=== PATIENT | female | born 2000 | race Caucasian/White ===

== ENCOUNTER → 2020-08-08 11:14 | Outpatient (CLI) | payer OTHER, MEDICAID, SELFPAY ==
[2020-08-08 13:18] LABS: HIV 1 & 2 Ab/Ag 4th Gen Combo NEGATIVE (NEGATIVE); Hep C Virus Ab w/Reflex Quant NEGATIVE s/c (NEGATIVE)
[2020-08-08 13:38] LABS: Urine N gonorrhoeae NOT DETECTED
[2020-08-08 13:39] LABS: Urine Chlamydia NOT DETECTED
[2020-08-09 08:09] LABS: HSV 2 IGG AB < 0.91 index (0.00-0.90); HSV1IGG < 0.91 index (0.00-0.90)
[2020-08-09 08:44] LABS: Varicella IgG Antibody 780 index (Immune >165)
[2020-08-11 13:15] LABS: Calc Gestational Age As provided (.); Estriol, Free 0.87 ng/mL (.); Inhibin A, Dimeric 234.67 pg/mL (.); Inhibin A, MoM 1.66 (.); Maternal Ethnicity Caucasian (.); Maternal Weight 229 lbs (.); Number of Fetuses No (.); OSBR Risk 1 IN 10000 (.); Results Report (.); Test Results *Screen Negative* (.); hCG, MoM 1.53 (.); hCG, Serum 66560 mIU/mL (.)
== END ==
PROVIDERS: PCP Family Medicine; Referring Provider Family Medicine; Visit Provider Family Medicine
DX: Z34.82 Encounter for supervision of other normal pregnancy, second trimester (principal); Z11.3 Encounter for screening for infections with a predominantly sexual mode of transmission; Z11.8 Encounter for screening for other infectious and parasitic diseases; Z3A.14 14 weeks gestation of pregnancy
CPT/HCPCS: 36415; 82105; 82677; 84702; 86336; 86695; 86696; 86787; 86803; 87086; 87389; 87491; 87591

== ENCOUNTER 2020-08-28 11:47 | Emergency (ER) | payer OTHER, MEDICAID, SELFPAY ==
[2020-08-28 11:50] VITALS: BP 139/65; PULSE 117; RESP 24; O2SAT 99; BMI 38.2
--- NOTE | 2020-08-28 12:21 | DI.US.S_ITS ---
PROCEDURE: US OB LIMITED INDICATIONS: RIGHT LOWER QUADRANT PAIN - 19 WEEKS GESTATIONAL AGE OUTSIDE/PRIOR DATING DATA: Last menstrual period (LMP): 04/17/2020. LMP-based estimated date of delivery (DINAH): 01/22/2021. TECHNIQUE: Real-time scanning was performed of the fetus, with image documentation. Endovaginal scanning: Not performed. COMPARISON: None. FINDINGS: A single living intrauterine gestation is present. Presentation: Vertex. Placenta: Placental position is anterior, without previa. Amniotic fluid index: 20.1 cm, normal range is 5-24 cm. heart rate: 136 beats per minute. Maternal cervical canal: 3.3 cm long. Normal lower limit is 2.5 cm. IMPRESSION: Ramos living intrauterine . heart rate 136 BPM. Recommend follow-up OB ultrasound at 20 weeks for anatomic survey. Dictated by: Simone Kaiser M.D. on 08/28/2020 at 14:09 Approved by: Simone Kaiser M.D. on 08/28/2020 at 14:12
--- NOTE | 2020-08-28 12:23 | ED_ITS ---
HPI - Abdominal Pain <Carl Kimshikha [facility] - Last Filed: 08/28/20 14:47> General Chief Complaint: Abdominal Pain Stated Complaint: PAIN IN RIGHT LOWER ABDOMEN, Time Seen by Provider: 08/28/20 11:49 Source: patient Mode of arrival: Ambulatory Limitations: no limitations History of Present Illness HPI narrative: This is a 20-year-old female, nonsmoker, who is 19 week EGA presents to ED with chief complain of right lower quadrant pain for last 3-4 days. Patient reports last night she had worst pain which worsened when rolled over, with movements, by palpation. She describes pain as cramping as baseline and sharp with movements and palpations. Patient also reports increased urinary urgency and frequency this past week. She also reports low midback worse on right-sided pain. Patient states pain is last persistent/consistent today as compared to last night. She denies vaginal bleeding or spotting. Patient denies history of any abdominal surgeries. She denies fever, chills, nausea, vomiting. She reports mild constipation and reports pressure like discomfort. Denies rectal bleeding. Patient reports history of ovarian cysts and PCOS. Patient had not tried Tylenol or other home treatment for pain. She had a bottle of water at 8:30 a.m. and small snack at 10:38 a.m. this morning. Related Data Home Medications Medication Instructions Recorded Confirmed prenat.vits,audra,kcw-[id number] 1 tab PO BEDTIME 07/10/20 08/28/20 Allergies Allergy/AdvReac Type Severity Reaction Status Date / Time Estrogens Allergy Severe Severe Verified 08/28/20 11:53 hives with synthetic forms of estrogen in Penicillins Allergy Severe Swelling Verified 08/28/20 11:53 and Hives Review of Systems <Carl Levine [facility] - Last Filed: 08/28/20 14:47> Review of Systems Narrative: General: Denies fever, chills, fatigue, malaise, sweats. HEENT: Denies sinus pain, ear pain, sore throat, difficulty swallowing, dizziness. Respiratory: Denies dyspnea, cough, wheezing, hemoptysis, sputum. Cardiovascular: Denies chest pain, palpitations, orthopnea, edema. Gastrointestinal: See HPI : See HPI Musculoskeletal: See HPI Skin: Denies rash, skin lesions, or other. Neurologic: Denies weakness, headache, numbness, change in speech, confusion, seizures, incoordination. Psychiatric: No concerning psychosocial issues. 12-point review of systems is negative except for those stated above. Patient History <AGUEDA Hall - Last Filed: 08/28/20 14:47> Medical History Migraine PCOS (polycystic ovarian syndrome) UTI (urinary tract infection) Surgical History H/O wisdom tooth extraction (~07/2019) Family History Mother Alcoholic Father Diverticulitis Grandmother Cancer Breast cancer Grandfather CVA (cerebral vascular accident) Grandmother Hyperthyroidism Thyroid disease Grandfather Cancer Prostate CA Diabetes mellitus Thyroid disease Hyperthyroidism Family/Other PCOS (polycystic ovarian syndrome) Social History household members: significant other lives independently: Yes pets and animals: Yes (X 1 dog) education level: high school occupational status: employed current occupational exposures/hazards: Yes 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 Head: Normal cephalic, atraumatic. No scalp or temporal tenderness, palpable mass or rash. EYES: Pupils are equal, round, and reactive to light and accommodation. Extraocular muscles are intact bilaterally. There is no subconjunctival hemorrhage, exudate and sclera non-icteric. ENT: Bilateral auditory canals and tympanic membranes clear. Hearing grossly intact. Nose without bleeding, purulent discharge or deviation. Facial sinuses nontender to palpate. Mucous membrane moist, no mucosal lesion. Throat without erythema, tonsillar hypertrophy or exudate. Uvula in midline, airway patent. Neck: Trachea in midline. No JVD, non-tender without lymphadenopathy. No ma sses or thyroid megaly. Supple, non-tender and no meningeal signs. CARDIAC: Normal regular rate and rhythm without murmurs, gallops, or rubs. No chest wall tenderness. No peripheral edema, cyanosis or pallor. Capillary refill is less than 2 seconds. RESPIRATORY: Lungs are clear to auscultate bilaterally. No cough, wheezes, rales, or rhonchi. No stridor, respiratory distress, increase work of breathing, or accessary muscle used. ABD: Abdomen soft and non-distended. Right lower quadrant pain with palpation. Positive obturators sign. No guarding to palpate. Bowel sounds are normal in all 4 quadrants. There is no palpable masses or organomegaly. EXT: Full painless ROM of all extremities with no loss of sensation, strength, effusion or edema. SKIN: Warm, dry, normal color for patient. No erythema, lesions or rash over visible areas. BACK: Nontender without deformity or crepitance. No flank tenderness. NEUROLOGICAL: Alert and oriented to place, time and person. Sensation and motor function intact bilaterally. No facial droops, dysphasia. PSYCHIATRIC: Good judgement and reason, without hallucinations, abnormal affect or abnormal behaviors during the examination. Patient is not suicidal. Initial Vital Signs Initial Vital Signs: Vital Signs Pulse Rate 117 H 08/28/20 11:50 Respiratory Rate 24 08/28/20 11:50 Blood Pressure 139/65 08/28/20 11:50 Pulse Oximetry 99 08/28/20 11:50 <Kentrell Chao DO - Last Filed: 08/29/20 17:52> Initial Vital Signs Initial Vital Signs: Vital Signs Pulse Rate 117 H 08/28/20 11:50 Respiratory Rate 24 08/28/20 11:50 Blood Pressure 139/65 08/28/20 11:50 Pulse Oximetry 99 08/28/20 11:50 Scores <AGUEDA Hall - Last Filed: 08/28/20 14:47> GCS [place] coma scale eye opening: Spontaneous [place] coma scale verbal response: Orientated [place] coma scale motor response: Obey commands [place] coma scale total score: 15 qSOFA Altered Mental Status (GCS <15): No Respiratory rate greater than/equal to 22: No Systolic blood pressure less than or equal to 100: No qSOFA Total: 0 0-1 Not High Risk 1-3 High risk Course <AGUEDA Hall - Last Filed: 08/28/20 14:47> Orders Ordered: Discontinued Medications Acetaminophen (Acetaminophen 325 Mg Tablet) 650 mg PO NOW ONE Stop: 08/28/20 12:23 Last Admin: 08/28/20 13:33 Dose: 650 mg Documented by: BTONER Sodium Chloride (Normal Saline 0.9%) 500 mls @ 1,000 mls/hr IV BOLUS ONE Stop: 08/28/20 13:18 Last Infusion: 08/28/20 14:21 Dose: 0 mls/hr Documented by: Admin: 08/28/20 13:34 Dose: 1,000 mls/hr Documented by: BTONER Vital Signs Vital signs: Vital Signs - 8 hr 08/28/20 11:50 08/28/20 13:27 08/28/20 14:38 Pulse Rate 117 H 92 H 88 Respiratory Rate 24 18 18 Blood Pressure 139/65 118/59 L 118/74 Pulse Oximetry 99 97 98 <Kentrell Chao DO - Last Filed: 08/29/20 17:52> Orders Ordered: Discontinued Medications Acetaminophen (Acetaminophen 325 Mg Tablet) 650 mg PO NOW ONE Stop: 08/28/20 12:23 Last Admin: 08/28/20 13:33 Dose: 650 mg Documented by: BTONER Sodium Chloride (Normal Saline 0.9%) 500 mls @ 1,000 mls/hr IV BOLUS ONE Stop: 08/28/20 13:18 Last Infusion: 08/28/20 14:21 Dose: 0 mls/hr Documented by: Admin: 08/28/20 13:34 Dose: 1,000 mls/hr Documented by: BTONER Vital Signs Vital signs: Vital Signs - 8 hr 08/28/20 11:50 08/28/20 13:27 08/28/20 14:38 Pulse Rate 117 H 92 H 88 Respiratory Rate 24 18 18 Blood Pressure 139/65 118/59 L 118/74 Pulse Oximetry 99 97 98 MDM - Abdominal Pain <AGUEDA Hall - Last Filed: 08/28/20 14:47> Differential Diagnosis Differential diagnosis: Likely acute appendicitis, calculus of kidney and other (UTI, pyelonephritis, ovarian cyst, ectopic , uterine incarceration, fibroid degeneration/torsion, round ligament ) Medical Records Attestation: I reviewed the patient's medical records. Lab Data Attestation: I reviewed the patient's lab results. Result diagrams: 08/28/20 12:15 08/28/20 12:15 Labs: Lab Results 08/28/20 08/28/20 08/28/20 Range/Units 12:15 12:15 12:15 WBC 8.8 (4.5-11.0) X10^3/uL RBC 4.34 (4.0-5.2) X10^6/uL Hgb 12.6 (12.0-16.0) g/dL Hct 37.0 (36-46) % MCV 85.3 (80-100) fL MCH 28.9 (26-34) PG MCHC 33.9 (30-36) % RDW 13.9 (11.6-14.8) % Plt Count 190 (150-400) X10^3/uL Neut % (Auto) 76.1 H (50-75) % Lymph % (Auto) 18.1 L (25-40) % [place] % (Auto) 4.9 (3-14) % Eos % (Auto) 0.6 L (2-4) % Baso % (Auto) 0.3 (0-2) % Neut # (Auto) 6700 (6433-6411) /uL Lymph # (Auto) 1600 (6825-6908) /uL [place] # (Auto) 400 (0-900) /uL Eos # (Auto) 100 (0-450) /uL Baso # (Auto) 0 (0-100) /uL Sodium 134 L (137-145) mmol/L Potassium 3.8 (3.4-5.1) mmol/L Chloride 105 (98-107) mmol/L Carbon Dioxide 22 (22-32) mmol/L BUN 7 (7-17) mg/dL Creatinine 0.34 L (0.52-1.04) mg/dL Estimated GFR > 60.0 (>60) mL/min BUN/Creatinine Ratio 20.6 (6-22) Glucose 107 H (70-100) mg/dL Lactate 0.9 (0.7-2.1) mmol/L Calcium 9.3 (8.4-10.2) mg/dL Total Bilirubin 0.2 (0.2-1.3) mg/dL AST 23 (14-36) IU/L ALT 22 (<35) IU/L Alkaline Phosphatase 63 (38-126) U/L Total Protein 7.5 (6.3-8.2) g/dL Albumin 4.0 (3.5-5.0) g/dL Globulin 3.5 (1.7-4.1) g/dL Albumin/Globulin Ratio 1.1 (1.0-2.8) Lipase 30 (23-300) U/L Point of care testing: Urine Dip Bedside Urine Glucose Negative Bedside Urine Bilirubin - Negative Bedside Urine Ketone - Negative Urine Specific [place] 1.015 Bedside Urine Occult Blood - Negative Bedside Urine pH 8.0 Bedside Urine Protein - Negative Bedside Urine Urobilinogen - Negative Bedside Urine Nitrite - Negative Bedside Urine Leukocytes - Negative Esterase MDM Narrative Medical decision making narrative: This is a 20-year-old female, no history of abdominal surgery presents to ED with chief complain of right lower quadrant pain for last 3-4 days with low back pain and increased in urinary frequency and urgency for last 1 week. Patient is 19 week EGA with . Patient denies vaginal bleeding or spotting with this. She denies fever, chills, nausea or vomiting. Urine test result shows no indications for infection with negative nitrites and leuks. Physical exam appreciated mild tenderness to palpate in right lower quadrant and obturator's sign. Concerned for appendicitis, ovar sonja/urine etiology, ultrasound of abdomen ordered. CBC shows no leukocytosis. Stable H/H of 12.6/37. Normal lactate. Normal lipase. Chemistry test shows mild hyponatremia of 134 with normal kidney function test with creatinine level of 0.34 and estimated GFR greater than 60. Serum glucose 107 mg/dL. Abdomen US ordered but read as OB US with a single IUP with FHT of 136. According to tech, no secondary infectious findings appreciated and unfortunately ovary was not seen. Abdomen exam repeated, negative heel tap or obturator signs but moderate discomfort in right lower quadrant with deep palpation. At this time, appendicitis or ovarian etiology is not completely ruled out at this time but blood tests and other findings are not consistent. Since the patient is , CT abdomen/pelvis deferred and advise patient to follow-up with Dr. Hart tomorrow for abdominal series exam. Dr. Hart consulted with the lab findings and physical exam and agrees to follow-up tomorrow with patient. Strict return precautions discussed with patient and patient verbalized understanding and in agreement with treatment plan. <Kentrell Jeremie, DO - Last Filed: 08/29/20 17:52> Lab Data Labs: Lab Results 08/28/20 08/28/20 08/28/20 Range/Units 12:15 12:15 12:15 WBC 8.8 (4.5-11.0) X10^3/uL RBC 4.34 (4.0-5.2) X10^6/uL Hgb 12.6 (12.0-16.0) g/dL Hct 37.0 (36-46) % MCV 85.3 (80-100) fL MCH 28.9 (26-34) PG MCHC 33.9 (30-36) % RDW 13.9 (11.6-14.8) % Plt Count 190 (150-400) X10^3/uL Neut % (Auto) 76.1 H (50-75) % Lymph % (Auto) 18.1 L (25-40) % [place] % (Auto) 4.9 (3-14) % Eos % (Auto) 0.6 L (2-4) % Baso % (Auto) 0.3 (0-2) % Neut # (Auto) 6700 (5149-2278) /uL Lymph # (Auto) 1600 (0957-8605) /uL [place] # (Auto) 400 (0-900) /uL Eos # (Auto) 100 (0-450) /uL Baso # (Auto) 0 (0-100) /uL Sodium 134 L (137-145) mmol/L Potassium 3.8 (3.4-5.1) mmol/L Chloride 105 (98-107) mmol/L Carbon Dioxide 22 (22-32) mmol/L BUN 7 (7-17) mg/dL Creatinine 0.34 L (0.52-1.04) mg/dL Estimated GFR > 60.0 (>60) mL/min BUN/Creatinine Ratio 20.6 (6-22) Glucose 107 H (70-100) mg/dL Lactate 0.9 (0.7-2.1) mmol/L Calcium 9.3 (8.4-10.2) mg/dL Total Bilirubin 0.2 (0.2-1.3) mg/dL AST 23 (14-36) IU/L ALT 22 (<35) IU/L Alkaline Phosphatase 63 (38-126) U/L Total Protein 7.5 (6.3-8.2) g/dL Albumin 4.0 (3.5-5.0) g/dL Globulin 3.5 (1.7-4.1) g/dL Albumin/Globulin Ratio 1.1 (1.0-2.8) Lipase 30 (23-300) U/L Point of care testing: Urine Dip Bedside Urine Glucose Negative Bedside Urine Bilirubin - Negative Bedside Urine Ketone - Negative Urine Specific [place] 1.015 Bedside Urine Occult Blood - Negative Bedside Urine pH 8.0 Bedside Urine Protein - Negative Bedside Urine Urobilinogen - Negative Bedside Urine Nitrite - Negative Bedside Urine Leukocytes - Negative Esterase Discharge Plan Departure Patient Disposition: Home Clinical Impression: Abdominal pain Qualifiers: Abdominal location: right lower quadrant Qualified Code(s): R10.31 - Right lower quadrant pain Qualifiers: Weeks of gestation: 19 weeks Qualified Code(s): Z3A.19 - 19 weeks gestation of Instructions: DI for Abdominal Pain-Adult Activity Restrictions/Additional Instructions: You have been diagnosed with [right lower quadrant pain during 2nd trimester. Labs are assuring. No indications for UTI. Ultrasound test shows one IUP with withing normal FHT.]. What to do: *Take your medications as directed. Please take [id number] Tylenol 650- 1000 mg up to 3 times a day as needed for pain. *Follow up with your primary care provider, Dr. Hart tomorrow, call for an appointment. Let them know you were seen in the ED and that we asked you to be seen in follow up. *Return to ED if you have any new, worsening, or concerning symptoms, such as [worsening pain, fever, chills, nausea, vomiting, chest pain, breathing difficulty, or any acute concerns]. Prescriptions: No Action prenat.vits,audra,[id number] Tablet 1 tab PO BEDTIME RF: 0 Referrals: Ever Hart MD [Primary Care Provider] - <Kentrell Chao DO - Last Filed: 08/29/20 17:52> Cosign ED Attending Cosignature Attestation: I was immediately available in the department for consultation. This documentation has been reviewed and I agree with assessment and plan. Supervised by Kentrell Chao DO
[2020-08-28 12:34] LABS: Add Manual Diff / Slide Review NO; Basophils Absolute Auto 0 /uL (0-100); Basophils Percent Auto 0.3 % (0-2); Eosinophils Absolute Auto 100 /uL (0-450); Eosinophils Percent Auto 0.6 % (2-4); Hemoglobin 12.6 g/dL (12.0-16.0); Lymphocytes Absolute Auto 1600 /uL (1100-4500); Lymphocytes Percent Auto 18.1 % (25-40); Mean Corpuscular HGB Conc 33.9 % (30-36); Mean Corpuscular Hemoglobin 28.9 PG (26-34); Mean Corpuscular Volume 85.3 fL (80-100); Monocytes Absolute Auto 400 /uL (0-900); Monocytes Percent Auto 4.9 % (3-14); Neutrophils Absolute Auto 6700 /uL (1500-7000); Neutrophils Percent Auto 76.1 % (50-75); Platelet Count 190 X10^3/uL (150-400); Red Blood Cell Count 4.34 X10^6/uL (4.0-5.2); Red Cell Distribution Width 13.9 % (11.6-14.8); White Blood Cell Count 8.8 X10^3/uL (4.5-11.0)
[2020-08-28 12:39] LABS: Alanine Aminotransferase 22 IU/L (<35); Albumin Globulin Ratio 1.1 (1.0-2.8); Alkaline Phosphatase 63 U/L (38-126); Aspartate Aminotransferase 23 IU/L (14-36); BUN Creatinine Ratio 20.6 (6-22); Bilirubin Total 0.2 mg/dL (0.2-1.3); Blood Urea Nitrogen 7 mg/dL (7-17); Calcium 9.3 mg/dL (8.4-10.2); Carbon Dioxide 22 mmol/L (22-32); Chloride 105 mmol/L (98-107); Estimated Glomerular Filt Rate > 60.0 mL/min (>60); Globulin 3.5 g/dL (1.7-4.1); Glucose 107 mg/dL (70-100); HEMOLYSIS < 15 (0-50); Lactate (Lactic Acid) 0.9 mmol/L (0.7-2.1); Lipase 30 U/L (23-300); Potassium 3.8 mmol/L (3.4-5.1); Sodium 134 mmol/L (137-145); Total Protein 7.5 g/dL (6.3-8.2)
[2020-08-28 13:27] VITALS: BP 118/59; PULSE 92; RESP 18; O2SAT 97
[2020-08-28] MEDS: ACETAMINOPHEN 325 MG TABLET 650 MG PO (13:33)
[2020-08-28] MEDS: SODIUM CHLORIDE 0.9% 500 ML 1000 ML IV (13:34)
[2020-08-28 14:38] VITALS: BP 118/74; PULSE 88; RESP 18; O2SAT 98
--- NOTE | 2020-08-28 14:38 | PC.NURSE ---
pt over rt lower quad of abd.
== END 2020-08-28 14:37 | disposition home or self-care (01) ==
PROVIDERS: Emergency Provider Nurse Practitioner Family; PCP Family Medicine
DX: O26.92 Pregnancy related conditions, unspecified, second trimester (principal); R10.31 Right lower quadrant pain; Z3A.19 19 weeks gestation of pregnancy
CPT/HCPCS: 36415; 76815; 80053; 81003; 83605; 83690; 85025; 96360; 99281; 99284

== ENCOUNTER → 2020-08-30 11:50 | Outpatient (CLI) | payer OTHER, MEDICAID, SELFPAY ==
[2020-08-30 12:13] LABS: RBC Urine None Seen (0-5/HPF); WBC Urine None Seen (0-5/HPF)
[2020-08-30 12:26] LABS: Appearance Urine UA SL CLOUDY; Bilirubin Urine UA NEGATIVE (NEGATIVE); Color Urine UA YELLOW; Glucose Urine UA NEGATIVE (Negative); Ketones Urine UA TRACE (NEGATIVE); Leukocyte Esterase Urine UA NEGATIVE (NEGATIVE); Nitrite Urine UA NEGATIVE (Negative); Occult Blood Urine UA NEGATIVE (Negative); Protein Urine UA TRACE (Negative); Specific Gravity Urine UA 1.025 (1.000-1.035); Urobilinogen Urine UA 0.2 E.U./dL (0.2)
[2020-08-30 12:32] LABS: Bacteria Urine Moderate (10-30); Culture Indicated Urine Cult Not Indicated; Squamous Epithelial Cell Urine 5-10 /HPF (0-5/HPF)
== END ==
PROVIDERS: PCP Family Medicine; Visit Provider Family Medicine
DX: R10.31 Right lower quadrant pain (principal)
CPT/HCPCS: 81001

== ENCOUNTER → 2020-09-05 12:08 | Outpatient (CLI) | payer OTHER, MEDICAID, SELFPAY ==
--- NOTE | 2020-09-05 12:10 | DI.US.S_ITS ---
PROCEDURE: US OB >= 14 WEEKS FETUS INDICATIONS: ANATOMIC SURVEY OUTSIDE/PRIOR DATING DATA: Last menstrual period (LMP): 04/17/2020. LMP-based estimated date of delivery (DINAH): 01/22/2021 . First dating scan (date and location): 09/05/2020 . Estimated date of delivery (DINAH) from first dating scan: 01/21/2021 . TECHNIQUE: Real-time scanning was performed of the fetus, with image documentation and biometric measurements. Endovaginal scanning: No COMPARISON: None. FINDINGS: General: A single living intrauterine gestation is present. Presentation: Breech. Placenta: Placental position is anterior , without previa. Amniotic fluid index: 20 cm, normal range is 5-24 cm. heart rate: 152 beats per minute. Maternal cervical canal: 3.6 cm long. Normal lower limit is 2.5 cm. biometrics: Biparietal diameter: 20 weeks 3 days Head circumference: 20 weeks 3 days Abdominal circumference: 20 weeks 1 day Femur length: 20 weeks Estimated gestational age from initial scan or LMP: 20 weeks 1 day Composite gestational age from present scan: 20 weeks 2 days Estimated weight and percentile: 334 g; 44th percentile Measurement variability for biometric dating: +/- 7 days from 14 weeks to 15 weeks 6 days gestation, +/- 10 days from 16 weeks to 21 weeks 6 days gestation, +/- 2 weeks from 22 weeks to 27 weeks 6 days gestation, +/- 3 weeks for 28 weeks gestation or later. weight reference: 4500 g or EFW >90/95% is considered macrosomia or large for gestational age. EFW <10% is small for gestational age. EFW 5% or less is considered intra-uterine growth restriction. Anatomic survey: Neuro: Ventricles are non-dilated at less than 10 mm. Cisterna magna is normal at 3-11 mm. Cerebellum is normal in size and morphology. Nuchal skin fold: Normal at less than 6 mm between 14-21 weeks gestational age. Face: Nose and lips, facial profile are normal. Spine: No evidence for spina bifida. Heart: 4-chambered heart is present, with normal ventricular outflow tracts. Diaphragm: Diaphragm is intact. Stomach: Left-sided stomach is present. Kidneys: No hydronephrosis. Normal is less than 5 mm in 2nd trimester, less than 7 mm in 3rd trimester. Cord: 3-vessel cord has orthotopic insertion. Bladder: Normal in size. Extremities: All 4 extremities identified. IMPRESSION: 1. Single living IUP with composite age of 20 weeks 2 days corresponding to ultrasound DINAH of 01/21/2021. 2. Normal anatomic survey. Dictated by: Anselmo Fang [facility] Interpreted: Azar Cervantes MD on 09/05/2020 at 16:46 Approved by: Azar Cervantes M.D. on 09/05/2020 at 17:06
== END ==
PROVIDERS: PCP Family Medicine; Referring Provider Family Medicine; Visit Provider Family Medicine
DX: Z34.02 Encounter for supervision of normal first pregnancy, second trimester (principal); Z3A.20 20 weeks gestation of pregnancy
CPT/HCPCS: 76811

== ENCOUNTER → 2020-10-31 11:10 | Outpatient (CLI) | payer OTHER, MEDICAID, SELFPAY ==
[2020-10-31 12:57] LABS: Hematocrit 34.1 % (36-46); Hemoglobin 11.6 g/dL (12.0-16.0)
[2020-10-31 13:39] LABS: GTT (PREG) 1 Hour PP 50gm Dose 147 mg/dL (76-139)
== END ==
PROVIDERS: PCP Family Medicine; Referring Provider Family Medicine; Visit Provider Family Medicine
DX: Z34.02 Encounter for supervision of normal first pregnancy, second trimester (principal); Z3A.24 24 weeks gestation of pregnancy; Z3A.19 19 weeks gestation of pregnancy
CPT/HCPCS: 36415; 82950; 85014; 85018; 86880; 86900; 86901

== ENCOUNTER 2020-11-14 14:10 | Outpatient (CLI) | payer OTHER, MEDICAID, SELFPAY | END 2020-11-14 14:55 | disposition home or self-care (01) | LOC: OB 11-15 14:22 | PROVIDERS: PCP Family Medicine; Referring Provider Family Medicine; Visit Provider Family Medicine | DX: Z03.71 Encounter for suspected problem with amniotic cavity and membrane ruled out (principal); O24.415 Gestational diabetes mellitus in pregnancy, controlled by oral hypoglycemic drugs; Z3A.30 30 weeks gestation of pregnancy; O99.891 Other specified diseases and conditions complicating pregnancy; R10.9 Unspecified abdominal pain | CPT/HCPCS: 59025; 81001; 84112; G0378; G0379 ==

== ENCOUNTER → 2020-11-14 17:19 | Outpatient (CLI) | payer OTHER, MEDICAID, SELFPAY ==
[2020-11-14 19:19] LABS: Appearance Urine UA CLEAR; Bilirubin Urine UA NEGATIVE (NEGATIVE); Color Urine UA YELLOW; Glucose Urine UA NEGATIVE (Negative); Ketones Urine UA TRACE (NEGATIVE); Leukocyte Esterase Urine UA TRACE (NEGATIVE); Nitrite Urine UA NEGATIVE (Negative); Occult Blood Urine UA TRACE-LYSED (Negative); Protein Urine UA TRACE (Negative); Specific Gravity Urine UA 1.025 (1.000-1.035); Urobilinogen Urine UA 0.2 E.U./dL (0.2)
[2020-11-14 19:36] LABS: Bacteria Urine Many (>30); Culture Indicated Urine Cult Not Indicated; Mucus Urine 2+ (Negative); RBC Urine 0-1/HPF (0-5/HPF); Squamous Epithelial Cell Urine >30 /HPF (0-5/HPF); Transitional Epi Cells Urine 5-10/HPF (0-5/HPF); WBC Urine 1-5/HPF (0-5/HPF)
== END ==
PROVIDERS: PCP Family Medicine; Visit Provider Family Medicine
DX: O99.891 Other specified diseases and conditions complicating pregnancy (principal); R10.9 Unspecified abdominal pain; Z3A.28 28 weeks gestation of pregnancy
CPT/HCPCS: 81001

== ENCOUNTER → 2020-11-28 08:41 | Outpatient (CLI) | payer OTHER, MEDICAID, SELFPAY ==
[2020-11-28 12:15] LABS: RBC Urine None Seen (0-5/HPF)
[2020-11-28 12:35] LABS: Appearance Urine UA CLOUDY; Bilirubin Urine UA NEGATIVE (NEGATIVE); Color Urine UA YELLOW; Glucose Urine UA NEGATIVE (Negative); Ketones Urine UA NEGATIVE (NEGATIVE); Leukocyte Esterase Urine UA 1+ (NEGATIVE); Nitrite Urine UA NEGATIVE (Negative); Occult Blood Urine UA NEGATIVE (Negative); Protein Urine UA TRACE (Negative); Specific Gravity Urine UA 1.025 (1.000-1.035); Urobilinogen Urine UA 0.2 E.U./dL (0.2)
[2020-11-28 13:37] LABS: Squamous Epithelial Cell Urine 1-5 /HPF (0-5/HPF); WBC Urine 1-5/HPF (0-5/HPF)
[2020-11-28 13:38] LABS: Amorphous Sediment Urine 4+; Bacteria Urine Few (2-10); Calcium Oxalate Crystals Urine Few; Culture Indicated Urine Specimen Cultured
== END ==
PROVIDERS: PCP Family Medicine; Visit Provider Family Medicine
DX: Z34.03 Encounter for supervision of normal first pregnancy, third trimester (principal); Z3A.30 30 weeks gestation of pregnancy
CPT/HCPCS: 81001; 87086

== ENCOUNTER 2020-12-08 14:49 | Outpatient (CLI) | payer OTHER, MEDICAID, SELFPAY | END 2020-12-08 15:38 | disposition home or self-care (01) | LOC: OB 12-11 08:04 | PROVIDERS: PCP Family Medicine; Referring Provider Family Medicine; Visit Provider Family Medicine | DX: Z03.71 Encounter for suspected problem with amniotic cavity and membrane ruled out (principal); Z3A.33 33 weeks gestation of pregnancy | CPT/HCPCS: 59025; 59050; 84112; G0378; G0379 ==

== ENCOUNTER 2020-12-31 03:41 | Inpatient (IN) | payer OTHER, MEDICAID, SELFPAY ==
[2020-12-31 06:03] LABS: Add Manual Diff / Slide Review NO; Basophils Absolute Auto 0 /uL (0-100); Basophils Percent Auto 0.3 % (0-2); Eosinophils Absolute Auto 0 /uL (0-450); Eosinophils Percent Auto 0.3 % (2-4); Hematocrit 35.1 % (36-46); Hemoglobin 11.6 g/dL (12.0-16.0); Lymphocytes Absolute Auto 1900 /uL (1100-4500); Mean Corpuscular Hemoglobin 25.9 PG (26-34); Mean Corpuscular Volume 78.5 fL (80-100); Monocytes Absolute Auto 600 /uL (0-900); Monocytes Percent Auto 6.1 % (3-14); Neutrophils Absolute Auto 7900 /uL (1500-7000); Neutrophils Percent Auto 75.3 % (50-75); Platelet Count 207 X10^3/uL (150-400); Red Blood Cell Count 4.47 X10^6/uL (4.0-5.2); Red Cell Distribution Width 14.7 % (11.6-14.8); White Blood Cell Count 10.5 X10^3/uL (4.5-11.0)
[2020-12-31 06:18] VITALS: BP 129/75
--- NOTE | 2020-12-31 06:48 | P.HPOB_ITS ---
OB HPI Date/Time Date of admission: 12/31/20 Date Patient Seen: 12/31/20 Time Patient Seen: 07:02 History of Present Condition Chief complaint: Observation : 1 Para: 0 Narrative: Laurie Leblanc is a 20 year old female G1 para 0 DINAH based on LMP of 04/19/2020 of 01/24/2021. DINAH based on 6 week ultrasound of 01/31/2021. recommended due date of 01/31/2021 puts her at 35 weeks and 4 days gestational age. Patient has a history of PCOS hemoglobin A1c on 05/31/2020 was 5.1 elevated 1 hour glucose challenge and patient was diet and metformin controlled. Blood sugars in the morning have been 90 highest post meal was 130. Patient states she began hilary about midnight last night. Contractions have been gradually increasing and presented to the center about 330 in the morning. Contractions were coming every 3-4 minutes. Moderate intensity. On arrival to the center patient was afebrile and normal blood pressure. Category 1 heart tracing. Contractions are uncomfortable. Patient has no complaints of headache right upper quadrant pain nausea blurry vision and no significant swelling. P History of Present care: good care Dating criteria: based on 1st trimester US only Ultrasounds: normal 1st trimester US and normal mid trimester US Obstetrical complications: gestational diabetes Medical complications: none Preadmission Labs Blood type: O (+) positive -: Antibody screen: negative, Cystic fibrosis screen: unknown, GBS status: positive, HIV: negative, HSV 1: negative, HSV 2: negative and RPR/VDLR: negative -: Chlamydia screen: not detected and Gonorrhea screen: not detected -: Rubella: unknown and Varicella: immune HCAB: negative Quad screen: Normal 1 hr GTT: 147 Evaluation Evaluation Baseline heart rate: 140 Variability: Average (6-10) monitor accelerations: Present Monitor Decelerations: Absent Contraction Frequency (minutes): 4 Uterine Contraction Intensity: Moderate Category of Tracing: Reactive Status: Category l Cervical dilation (cm): 5 Cervical effacement (%): 80 station: -1 Laboratory results: Laboratory Tests 12/31/20 05:55 WBC 10.5 RBC 4.47 Hgb 11.6 L Hct 35.1 L MCV 78.5 L MCH 25.9 L MCHC 33.0 RDW 14.7 Plt Count 207 Neut % (Auto) 75.3 H Lymph % (Auto) 18.0 L [place] % (Auto) 6.1 Eos % (Auto) 0.3 L Baso % (Auto) 0.3 Neut # (Auto) 7900 H Lymph # (Auto) 1900 [place] # (Auto) 600 Eos # (Auto) 0 Baso # (Auto) 0 PFSH Medical History Migraine PCOS (polycystic ovarian syndrome) UTI (urinary tract infection) Surgical History H/O wisdom tooth extraction (~07/2019) Family History Mother Alcoholic Father Diverticulitis Grandmother Cancer Breast cancer Grandfather CVA (cerebral vascular accident) Grandmother Hyperthyroidism Thyroid disease Grandfather Cancer Prostate CA Diabetes mellitus Thyroid disease Hyperthyroidism Family/Other PCOS (polycystic ovarian syndrome) Social History household members: significant other lives independently: Yes pets and animals: Yes (X 1 dog) education level: high school occupational status: employed current occupational exposures/hazards: Yes 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 Smoking Status: Never smoker second hand exposure: No alcohol intake: never substance use type: does not use Meds Home Medications and Allergies Home Medications Medication Instructions Recorded Confirmed Type prenat.vits,audra,neh-[id number] 1 tab PO BEDTIME 07/10/20 12/31/20 History metformin 500 mg tablet 500 mg PO BID #60 tab 10/31/20 12/31/20 Rx blood-glucose meter (Blood Glucose #1 ea 11/02/20 12/26/20 Rx Monitoring) lancets #150 ea 11/02/20 12/26/20 Rx test strips #150 ea 12/01/20 12/26/20 Rx Allergies Allergy/AdvReac Type Severity Reaction Status Date / Time Estrogens Allergy Severe Severe Verified 12/26/20 09:39 hives with synthetic forms of estrogen in BC Penicillins Allergy Severe Swelling Verified 12/26/20 09:39 and Hives Exam Vital Signs (past 8 hours): - 12/31/20 06:18 Blood Pressure 129/75 Narrative Exam Narrative: . General: Alert no apparent distress. Affect is appropriate. Hilary it is uncomfortable. HEENT: Neck is supple without lymphadenopathy pupils equal round and reactive. Cardio: S1-S2 regular rate and rhythm. Respiratory: Lungs clear to auscultation. Abdomen: Gravid. Extremities: Normal deep tendon reflexes trace edema. [place]: Every 4 minutes moderate 30-60 seconds in heart tones: 140 category 1 Objective Labs Result Diagrams: 12/31/20 05:55 Labs: Laboratory Results - last 24 hr 12/31/20 05:55 WBC 10.5 RBC 4.47 Hgb 11.6 L Hct 35.1 L MCV 78.5 L MCH 25.9 L MCHC 33.0 RDW 14.7 Plt Count 207 Neut % (Auto) 75.3 H Lymph % (Auto) 18.0 L [place] % (Auto) 6.1 Eos % (Auto) 0.3 L Baso % (Auto) 0.3 Neut # (Auto) 7900 H Lymph # (Auto) 1900 [place] # (Auto) 600 Eos # (Auto) 0 Baso # (Auto) 0 Assessment and Plan Assessment and Plan Assessment and Plan narrative: 20-year-old G1 para 0 estimated due date January 31 consistent with early 6 week ultrasound which differs from her. Which was a due date of 01/24 2011 based on her ultrasound she is 35 and 4 weeks ge stational age. Patient is hilary regularly. Vital signs are stable she is afebrile GBS test is positive SARS-CoV-2 test is negative. Patient is hilary and making cervical change and is in labor. Labor care orders were written for consents were obtained the labor care was discussed with patient and partner who her with her today. We will start on antibiotic for GBS protocol status. Reviewed with patient and partner her gestational age which is 35 weeks and 4 days. Concern about lung maturity and the potential transfer to NICU depending on how baby does after delivery and lung maturity.
[2020-12-31 06:55] LABS: COVID19 - ADMIT (NP swab/PCR) Negative (Negative); Strep Grp B PCR POS for Grp B Strep
[2020-12-31] MEDS: LACTATED RINGERS 1,000 ML 100 ML IV ×4 (07:15→14:34)
[2020-12-31] MEDS: CEFAZOLIN 1 GM VIAL 2 GM IV (07:30)
--- NOTE | 2020-12-31 11:21 | PM.OBPNLAB ---
Date/Time Date Patient Seen: 12/31/20 Time Patient Seen: 11:21 Pelvic Exam Dilation (cm): 6 Effacement (%): 80 station: -1 Amniotic membrane status: Ruptured Comments: Amniotomy clear fluid Contractions Contractions on admission: regular Monitor mode: External Contraction pattern: Regular Contraction intensity: Moderate Status status: Category l Monitor Accelerations: Present Monitor Decelerations: Absent Assessment and Plan Assessment: active labor Comments: Patient received an epidural. Category 1 heart tracing. Blood pressure little bit low presumed due to epidural. Fluid given. Patient mildly nauseated. Amniotomy of clear fluid. 6 cm now. Antibiotics given for GBS status.
[2020-12-31] MEDS: OXYTOCIN PREMIX 30 UNIT/500 ML PLAST..BAG IV (13:21)
--- NOTE | 2020-12-31 14:03 | PM.OBPNLAB ---
Date/Time Date Patient Seen: 12/31/20 Time Patient Seen: 14:03 Pain Control Pain control: tolerating well and epidural Pelvic Exam Dilation (cm): 6 Effacement (%): 80 station: -1 Amniotic membrane status: Ruptured Contractions Monitor mode: External Pitocin rate (mU/min): 2 Contraction pattern: Irregular Contraction intensity: Moderate Status status: Category l Heart Rate Baseline: 130 Monitor Accelerations: Present Monitor Decelerations: Absent Monitor Variability: Moderate Assessment and Plan Assessment: active labor Comments: chart strip reviewed started Pit contractions slowed after epidural. Pt with LBP give fluid bolus. Patent tachycardia BP related given one dose ephedra by anesthesiology for lbp.
[2020-12-31] MEDS: CEFAZOLIN 1 GM VIAL IV (15:30)
[2020-12-31] MEDS: ONDANSETRON 4 MG/2 ML INJ IV (16:03)
--- NOTE | 2020-12-31 16:39 | P.PCNOB_ITS ---
Events: Labor < 37 wks Labor & Delivery Delivery date: 12/31/20 Cervical ripening method: none Induction method: none Delivery augmentation: rupture of membranes and pitocin Delivery monitor: external FHT Route of delivery: Episiotomy description: Midline L&D Laceration Description: Perineal - 2nd Degree Delivery repair: chromic Estimated blood loss (mL): 300 Anesthesia Type: Spinal Narrative: Stage I of labor. Approximately 8 hours. Patient present to the labor and delivery floor at 3 cm hilary regularly. Patient had normal blood pressure. Her contractions continued and became more aggressive and had cervical chains. On my examination. Patient had category 1 tracing cervical exam was 4-5 cm 80% effaced-1 station. Patient was hilary regularly vital signs were stable afebrile GBS screen was done and was positive COVID screen was done which was negative. Patient was started on antibiotics. Patient became uncomfortable and received an epidural with good results. After the epidural patient's blood pressure went low. She was given a dose of ephedrine by Anesthesia. Patient's blood pressure improved but not back to normal high blood pressure. Mom became a little bit tachycardic. She was given a fluid bolus. Due to the epidural patient's contractions spaced out she had amniotomy with clear fluid. And then a mild amount of Pitocin to help with contractions. Patient progressed to complete. Patient's category tracing was category 1 mainly during stage I of labor. Stage II of labor approximately 10 minutes. During stage II of labor patient pushed to deliver a viable male infant in vertex position. At the delivery of the head there were 2 nuchal cords. Which were not easily reduced so the cord was cut and clamped before delivery of the shoulders and then baby delivered spontaneously. During stage II of labor patient had category 1 category 2 tracing. Baby was delivered on the mother's abdomen. Apgars were 8 and 9. Baby was bold is sectioned at mom's chest. Baby had spontaneous cry and was vigorous. Stage III approximately 10 minutes. Delivery of intact placenta with three- vessel cord. Repair of a second-degree midline tear was performed with a 2 0 chromic stitch with 0.5 cc of lidocaine in the usual fashion. Patient afterwards was doing well. Estimated blood loss was 300 cc mom and baby were doing well.
--- NOTE | 2021-01-01 07:32 | P.PN_ITS ---
Subjective Subjective Date Patient Seen: 01/01/21 Time Patient Seen: 07:32 Interval history: day 1. Mom's doing well. Pain is well controlled. She is working on . She is eating and ambulating. Bleeding is anticipated. Vital signs have been stable no nursing staff concerns. Urinating without difficulty. Uterus is firm with some cramping mom says. Exam Narrative Exam Narrative: General: Alert no apparent distress. Affect is appropriate. Jorge it is uncomfortable. HEENT: Neck is supple without lymphadenopathy pupils equal round and reactive. Cardio: S1-S2 regular rate and rhythm. Respiratory: Lungs clear to auscultation. Abdomen: Uterus firm. Extremities: Normal deep tendon reflexes trace edema. Objective Labs Result Diagrams: 12/31/20 05:55 PFSH Medical History Migraine PCOS (polycystic ovarian syndrome) UTI (urinary tract infection) Surgical History H/O wisdom tooth extraction (~07/2019) Family History Mother Alcoholic Father Diverticulitis Grandmother Cancer Breast cancer Grandfather CVA (cerebral vascular accident) Grandmother Hyperthyroidism Thyroid disease Grandfather Cancer Prostate CA Diabetes mellitus Thyroid disease Hyperthyroidism Family/Other PCOS (polycystic ovarian syndrome) Social History household members: significant other lives independently: Yes pets and animals: Yes (X 1 dog) education level: high school occupational status: employed current occupational exposures/hazards: Yes 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 Mom's doing well this time. Hemoglobin hematocrit is pending. Did not have a significant amount of blood loss at . No significant calf tenderness bleeding is anticipated breast- feeding is going well. Anticipate discharge tomorrow.
[2021-01-01 08:47] LABS: Hematocrit 29.8 % (36-46); Hemoglobin 9.7 g/dL (12.0-16.0)
[2021-01-01] MEDS: IBUPROFEN 600 MG TABLET PO (08:58)
[2021-01-01] MEDS: DOCUSATE 100 MG CAPSULE PO (08:59)
[2021-01-02] MEDS: IBUPROFEN 600 MG TABLET PO ×2 (00:19→09:33)
[2021-01-02] MEDS: DERMOPLAST SPRAY 20% 60 ML 1 SPRAY TOP (00:19)
--- NOTE | 2021-01-02 08:41 | P.DS_ITS ---
History of Present Illness History of Present Illness Chief complaint: Labor & Delivery Discharge Providers Provider Date of admission: 12/31/20 03:41 Discharge Date: 01/02/21 Primary care physician: Ever Hart MD Consults: 01/01/21 16:44 Consult to Turntable Operator Routine Comment: Discharge provider: Ever Hart MD Summary Hospital Course Discharge Diagnosis: Delivery vaginally of a viable male at 35 weeks Hospital Course: Mom presented to the labor and delivery Center on the weekend an active labor. Patient made good cervical change and delivered a thyroid a 5 week male. Mom had routine care. At day 1 after delivery she was eating ambulating pain was well controlled. Had normal urination and bowel movement. Bleeding was normal lower extremity edema is mild and no calf pain or tenderness. Jony hospitalization 2. Vital signs were stable. Breast-feeding was going a little bit better. Bleeding with stable hemoglobin hematocrit with stable vital signs were stable. Exam Narrative Exam Narrative: General: Alert no apparent distress. Affect is appropriate. Jorge it is uncomfortable. HEENT: Neck is supple without lymphadenopathy pupils equal round and reactive. Cardio: S1-S2 regular rate and rhythm. Respiratory: Lungs clear to auscultation. Abdomen: Uterus firm. Extremities: Normal deep tendon reflexes trace edema. Objective Labs Result Diagrams: 01/01/21 08:37 Labs: Laboratory Results - last 24 hr 01/01/21 08:37 Hgb 9.7 L Hct 29.8 L PFSH Medical History Migraine PCOS (polycystic ovarian syndrome) UTI (urinary tract infection) Surgical History H/O wisdom tooth extraction (~07/2019) Family History Mother Alcoholic Father Diverticulitis Grandmother Cancer Breast cancer Grandfather CVA (cerebral vascular accident) Grandmother Hyperthyroidism Thyroid disease Grandfather Cancer Prostate CA Diabetes mellitus Thyroid disease Hyperthyroidism Family/Other PCOS (polycystic ovarian syndrome) Social History household members: significant other lives independently: Yes pets and animals: Yes (X 1 dog) education level: high school occupational status: employed current occupational exposures/hazards: Yes 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[place] special juliana needs: No Smoking Status: Never smoker second hand exposure: No alcohol intake: never substance use type: does not use Discharge Plan Discharge Plan Patient Disposition: Home Provider Discharge Comment: Follow-up in 6 weeks Discharge orders & Medications Prescriptions: New ibuprofen 600 mg Tablet 600 mg PO Q6HR PRN (Reason: Pain, Mild (1-3)) Qty: 30 RF: 0 docusate sodium [DOK] 100 mg Capsule 100 mg PO DAILY Qty: 20 RF: 0 Continued prenat.vits,audra,[id number] Tablet 1 tab PO BEDTIME RF: 0 Discontinued metformin 500 mg tablet 500 mg PO BID Qty: 60 RF: 3 No Action (DME) blood-glucose meter [Blood Glucose Monitoring] Kit See Rx Instructions .ROUTE .MEDSUPPLY Qty: 1 RF: 0 (DME) lancets See Rx Instructions .Route .MEDSUPPLY Qty: 150 RF: 5 (DME) test strips See Rx Instructions .Route .MEDSUPPLY Qty: 150 RF: 5 Follow up/Referrals: Ever Hart MD [Primary Care Provider] - Visit Report/Discharge Packet Visit Report Forms: Patient Portal/API, Stroke Signs & Symptoms Discharge Data Primary Care Provider: Ever Hart
[2021-01-02 08:57] VITALS: BP 108/59; PULSE 67; RESP 16; TEMP 36.1
[2021-01-02] MEDS: DOCUSATE 100 MG CAPSULE PO (09:33)
== END 2021-01-02 11:16 | disposition home or self-care (01) | DRG 560 ==
PROVIDERS: Admitting Provider Obstetrics & Gynecology; PCP Family Medicine; Referring Provider Obstetrics & Gynecology; Visit Provider Obstetrics & Gynecology
DX: O60.14X0 Preterm labor third trimester with preterm delivery third trimester, not applicable or unspecified (principal); O70.1 Second degree perineal laceration during delivery; O24.425 Gestational diabetes mellitus in childbirth, controlled by oral hypoglycemic drugs; O99.824 Streptococcus B carrier state complicating childbirth; Z3A.35 35 weeks gestation of pregnancy; Z37.0 Single live birth; Z20.822 Contact with and (suspected) exposure to COVID-19
CPT/HCPCS: 01967; 36415; 59050; 59409; 85014; 85018; 85025; 86850; 86900; 86901; 87186; 87635; 87653; C9803; G0379; J0690; J2405; J2590